=== PATIENT | female | born 1990 | race Caucasian/White ===

== ENCOUNTER 2022-02-20 15:58 | Emergency (ER) | payer OTHER, SELFPAY ==
[~2022-02-20] VITALS: Ht 162.6 cm; Wt 54.0 kg
[2022-02-20] MEDS ORDERED: ONDANSETRON 4MG ODT PO STA (19:01)
[2022-02-20] MEDS ORDERED: ACETAMINOPHEN 325MG TABLET PO STA (19:01)
[2022-02-20 19:24] LABS: CLARITY URINE CLEAR (CLEAR); COLOR URINE YELLOW (YELLOW); KETONES URINE TRACE (NEGATIVE); LEUKOCYTE ESTERASE URINE NEGATIVE (NEGATIVE); NITRITE URINE NEGATIVE (NEGATIVE); OCCULT BLOOD URINE NEGATIVE (NEGATIVE); PH URINE 6.5 (4.5-8.0); PROTEIN URINE NEGATIVE (NEGATIVE); SPECIFIC GRAVITY URINE 1.024 (1.005-1.030)
[2022-02-20 19:32] LABS: BASOPHILS % 0.5 % (0.0-2.0); EOSINOPHILS % 0.5 % (0.0-5.0); HEMOGLOBIN. 14.7 g/dL (12.0-16.0); LYMPHOCYTES % 48.4 % (20.0-50.0); MEAN CORPUSCULAR HEMOGLOBIN 32.5 pg (28.0-32.0); MEAN CORPUSCULAR VOLUME 94.9 fL (81.0-99.0); MEAN PLATELET VOLUME 8.3 fl (7.4-10.4); MONOCYTES % 8.3 % (2.0-8.0); NEUTROPHILS % 42.3 % (40.0-76.0); PLATELET 280 x1000/uL (130-400); RED BLOOD CELL COUNT 4.53 mill/uL (4.2-5.4); RED CELL DISTRIBUTION WIDTH 12.5 % (11.6-14.6)
[2022-02-20 19:40] LABS: INR 0.9; PROTHROMBIN TIME 10.2 sec (9.6-11.0)
[2022-02-20] MEDS ORDERED: MECLIZINE 25MG TABLET PO ONE (19:45)
[2022-02-20 19:52] LABS: HCG SCREEN NEGATIVE
[2022-02-20 19:53] LABS: CHLORIDE 105 mEq/L (98-107)
[2022-02-20 19:56] LABS: *AMPHETAMINES SCREEN URINE NEGATIVE (NEGATIVE); *BARBITURATES SCREEN URINE NEGATIVE (NEGATIVE); *BENZODIAZEPINES SCREEN URINE NEGATIVE (NEGATIVE); *COCAINE SCREEN URINE NEGATIVE (NEGATIVE); CANNABINOID URINE SCREEN NEGATIVE (NEGATIVE); METHADONE URINE SCREEN NEGATIVE (NEGATIVE); OPIATES URINE SCREEN NEGATIVE (NEGATIVE); PHENCYCLIDINE URINE SCREEN NEGATIVE (NEGATIVE)
[2022-02-20 20:05] LABS: ETHANOL BLOOD < 10 mg/dL
[2022-02-20] MEDS ORDERED: MECL-159 MT (22:02)
[2022-02-20] MEDS ORDERED: ONDA4TAB50 MT (22:07)
[2022-02-20 22:10] VITALS: BP 125/75
== END 2022-02-20 22:10 | disposition home or self-care (01) ==
LOC: ER 15:58
DX: R42 Dizziness and giddiness (principal); R11.2 Nausea with vomiting, unspecified; F32.9 Major depressive disorder, single episode, unspecified
CPT/HCPCS: 36415; 70450; 71045; 80053; 80305; 80320; 81003; 81025; 83690; 84703; 85025; 85610; 99285; Q0162; J8597; G0480

== ENCOUNTER 2022-09-29 10:14 | Emergency (ER) | payer OTHER ==
[~2022-09-29] VITALS: Ht 162.6 cm; Wt 53.0 kg
[~2022-09-29 10:14] MED LIST: MECL-159 MT; ONDA4TAB50 MT
[2022-09-29 10:19] VITALS: BP 118/62
[2022-09-29] MEDS ORDERED: TETANUS, DIPHTHERIA, PERTUSSIS VAC/PF 0.5ML (>10YR OLD) IM ONE (10:45)
[2022-09-29] MEDS ORDERED: BACITRACIN 15GM TUBE TOP NR (11:00)
[2022-09-29] MEDS ORDERED: BACITRACIN ZINC OINT UDPKT TOP NR (11:15)
== END 2022-09-29 11:23 | disposition home or self-care (01) ==
LOC: ER 10:45
DX: S61.551A Open bite of right wrist, initial encounter (principal); W54.0XXA Bitten by dog, initial encounter; Y93.89 Activity, other specified; Y92.89 Other specified places as the place of occurrence of the external cause; Y99.8 Other external cause status
CPT/HCPCS: 90471; 90715; 99283